=== PATIENT | male | born 1960 | race Caucasian/White ===

== ENCOUNTER 2022-11-23 23:26 | Emergency (ER) | payer OTHER ==
[~2022-11-23] VITALS: Ht 172.7 cm; Wt 95.0 kg
[2022-11-23 23:45] VITALS: BP 175/93
[2022-11-24] VITALS (25 sets, daily range): BP systolic 138–195; BP diastolic 65–139
[2022-11-24] MEDS ORDERED: CLOPIDOGREL75 MG PO (00:06)
[2022-11-24] MEDS ORDERED: FUROSEMIDE20 MG PO (00:07)
[2022-11-24] MEDS ORDERED: ROWEEPRA500 MG PO (00:08)
[2022-11-24] MEDS ORDERED: CITALOPRAM20 MG PO (00:09)
[2022-11-24] MEDS ORDERED: ATORVASTATIN CA80 MG PO (00:09)
[2022-11-24] MEDS ORDERED: PANTOPRAZOLE SO40 M3 PO (00:09)
[2022-11-24] MEDS ORDERED: ASPIRIN81 MG PO (00:10)
[2022-11-24 00:32] LABS: BASO% 1.3 % (0-3); EOS% 4.1 % (0-8); HEMATOCRIT 42.2 % (39.0-50.0); HEMOGLOBIN 14.2 g/dl (14.0-18.0); IMMATURE GRANULOCYTES 0.2 % (0.0-5.0); LYMPH% 40.6 % (15-41); MEAN CELL VOLUME 87.6 fL CALC (80.0-100.0); MEAN CORPUSCULAR HGB 29.5 pG CALC (26.0-32.0); MEAN CORPUSCULAR HGB CONC 33.6 g/dL CAL (32.0-36.0); MONO% 12.9 % (2-13); NEUT# 1.91 thou/uL (1.82-7.42); NEUT% 40.9 % (42-76); RED BLOOD COUNT 4.82 mill/uL (4.70-6.10); RED CELL DISTRI WIDTH 12.8 % (11.5-15.5)
[2022-11-24 00:44] LABS: ALKALINE PHOSPHATASE 98 u/l (38-126); ANION GAP 7 (6-22 (CALC)); BILIRUBIN, TOTAL 0.5 mg/dL (0.2-1.3); BUN 21 mg/dL (8-23); BUN/CREATININE RATIO 17 (12-20 (CALC)); CARBON DIOXIDE 28 mmol/l (22-30); CHLORIDE 106 mmol/l (95-108); CREATININE 1.2 mg/dL (0.7-1.3); GFR FOR AFR.AMER. > 60 ML/MIN (>=60 (CALC)); GFR OTHER RACES > 60 ML/MIN (>=60 (CALC)); POTASSIUM 3.7 mmol/l (3.5-5.1); SGOT/AST 33 u/l (19-48); SODIUM 137 mmol/l (137-146)
[2022-11-24 00:47] LABS: D-DIMER 0.59 mg/L (0.19-0.60)
== END 2022-11-24 06:21 | DRG 303 ==
LOC: ED 23:26
PROVIDERS: Emergency Medicine
DX: I25.10 Atherosclerotic heart disease of native coronary artery without angina pectoris (principal); I50.9 Heart failure, unspecified; Z95.5 Presence of coronary angioplasty implant and graft; F17.210 Nicotine dependence, cigarettes, uncomplicated; I11.0 Hypertensive heart disease with heart failure; E11.9 Type 2 diabetes mellitus without complications; Z79.84 Long term (current) use of oral hypoglycemic drugs; R07.9 Chest pain, unspecified; Z20.822 Contact with and (suspected) exposure to COVID-19
CPT/HCPCS: J1644